=== PATIENT | female | born 1955 | race Caucasian/White ===

== ENCOUNTER → 2018-04-26 | Outpatient (CLI) | payer BC | LOC: GMAM 10:30 | PROVIDERS: ATTEND Family Medicine | DX: Z00.00 Encounter for general adult medical examination without abnormal findings (principal) ==

== ENCOUNTER → 2020-01-18 | Outpatient (CLI) | payer BC ==
--- NOTE | 2020-01-19 10:40 | US ---
EXAM DESCRIPTION: Gall Bladder: ULTRASOUND. CLINICAL HISTORY: EPIGASTRIC PN COMPARISON: None. TECHNIQUE: Transabdominal scanning: Dickinson-scale and Doppler modes.. Gallbladder contracted. Patient was nonfasting. FINDINGS: Gallbladder: Small a partially contracted. No echogenic stones or sludge. No fluid around the gallbladder. No wall thickening. 3 mm. Non-tender with transducer pressure. Common bile duct: caliber 4.0 mm within normal limits. Liver: Heterogeneously increased. echogenicity; contour liver capsule smooth where seen. No fluid around the liver. Intrahepatic biliary ducts normal caliber. Doppler color flow portal vein shows turbulence and mixing. Caliber at rahul hepatis 9 mm.. Long axis right lobe 14.2 cm. Pancreas: normal size Normal echogenicity. Duct not seen. Aorta: Normal caliber 1.7 cm. Right kidney: long axis is 10.6 cm; volume 90.5 mL. No echogenic stones or hydronephrosis. Normal vascularity. Minimal decrease in cortical thickness and echogenicity equal to the liver.. IMPRESSION: 1. Gallbladder contracted with patient not fasting. Minimal wall thickening is spurious due to contraction. No fluid in nontender with pressure. Common bile duct normal caliber. 2. Liver normal size and heterogeneously steatosis. Portal venous flow showed mixing but portal vein is not dilated. Correlate with clinical findings. Smooth capsule with no ascites. Pancreas is negative. 3. Cortical thickness and echogenicity is most likely related to aging. Electronically signed by: Barrington Wellington MD 01/19/2020 10:38 AM CDT
== END ==
LOC: US 10:24
PROVIDERS: ATTEND Family Medicine
DX: K82.8 Other specified diseases of gallbladder (principal); N28.9 Disorder of kidney and ureter, unspecified; R10.13 Epigastric pain

== ENCOUNTER → 2020-01-23 | Outpatient (CLI) | payer BC | LOC: GMAM 16:39 | PROVIDERS: ATTEND Family Medicine | DX: R10.13 Epigastric pain (principal) ==